=== PATIENT | female | born 2000 | race Caucasian/White ===

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

== ENCOUNTER → 2021-03-07 | Outpatient (CLI) | payer BC, OTHER ==
--- NOTE | 2021-03-07 11:40 | EKG ---
[address] [address] Test Date: 2021-03-07 Test Time: 10:36:12 Pat Name: CLAUDIO SAEZ Department: Room: Gender: F [employer] Starcher: : 2000 Requested By: GLORIA STYLES Order Number: [id number] Reading MD: Measurements Intervals [place] Rate: 75 P: 56 OR: 128 QRS: 67 QRSD: 88 T: 42 QT: 348 QTc: 391 Interpretive Statements SINUS RHYTHM NORMAL ECG RI6.02 No previous ECG available for comparison
== END ==
LOC: EKG 10:26
PROVIDERS: ATTEND Obstetrics & Gynecology
DX: R06.02 Shortness of breath (principal)
CPT/HCPCS: 93005

== ENCOUNTER 2021-10-23 19:35 | Emergency (ER) | payer BC, OTHER ==
[~2021-10-23] VITALS: Ht 165.1 cm; Wt 105.0 kg
--- NOTE | 2021-10-23 20:26 | PHYS DOC ---
Past History Past Medical History: Asthma, Hypertension (ANASTASIIA MCKEON APRN) Past Surgical History: No Surgical History (ANASTASIIA MCKEON APRN) Smoking: Non-smoker Alcohol Use: None Drug Use: None (ANASTASIIA MCKEON APRN) General Adult EDM: Chief Complaint: VAGINAL BLEEDING HPI: HPI: Patient is an 19-year-old female who presents to the emergency department today for vaginal bleeding and . Patient reports that she urinated and wiped and noticed spotting. She is reporting urinary frequency. Patient reports that she contacted her OB who is Dr. Mendez who told her to go to her closest ER. Patient is approximately 16 weeks . G2, P1. She has a history of eclampsia with her first . No complications with this thus far. Patient's last menstrual period was June 29. Patient reports that her blood pressure at home was 160 systolic. Her blood pressure is slightly elevated in the emergency department at 148/85. Patient denies any vision changes, abdominal pain, saturating pads, dysuria, vomiting, fevers, chest pain, shortness of breath. (ANASTASIIA MCKEON APRN) Review of Systems: Review of Systems: Constitutional: See HPI Eyes: See HPI Respiratory: See HPI Cardiovascular: See HPI GI: See HPI : See HPI (ANASTASIIA MCKEON APRN) Allergies: Allergies: Allergies Coded Allergies Type Severity Reaction Last Updated Verified No Known Drug Allergies 12/08/15 No (ANASTASIIA MCKEON APRN) Physical Exam: PE: Constitutional: Well developed, well nourished, no acute distress, non-toxic appearance. [] HENT: Normocephalic, atraumatic, bilateral external ears normal, oropharynx moist, no oral exudates, nose normal. [] Eyes: PERRL, EOMI, conjunctiva normal, no discharge. [] Neck: Normal range of motion, no stridor Cardiovascular:Heart rate regular rhythm, no murmur [] Lungs & Thorax: Bilateral breath sounds clear to auscultation [] Abdomen: Bowel sounds normal, soft, no tenderness, no masses, no pulsatile masses. [] Skin: Warm, dry, no erythema, no rash. [] Back: Normal range of motion Extremities: No tenderness, no cyanosis, no clubbing, ROM intact, no edema. [] Neurologic: Alert and oriented X 3, normal motor function, normal sensory function, no focal deficits noted. [] Psychologic: Affect normal, judgement normal, mood normal. [] (ANASTASIIA MCKEON APRN) Current Patient Data: Labs: Laboratory Tests Test 10/23/21 20:16 White Blood Count 11.3 x10^3/uL Red Blood Count 4.03 x10^6/uL Hemoglobin 12.1 g/dL Hematocrit 36.0 % Mean Corpuscular Volume 89 fL Mean Corpuscular Hemoglobin 30 pg Mean Corpuscular Hemoglobin Concent 34 g/dL Red Cell Distribution Width 14.7 % Platelet Count 253 x10^3/uL Neutrophils (%) (Auto) 61 % Lymphocytes (%) (Auto) 26 % Monocytes (%) (Auto) 8 % Eosinophils (%) (Auto) 4 % Basophils (%) (Auto) 1 % Neutrophils # (Auto) 6.8 x10^3uL Lymphocytes # (Auto) 3.0 x10^3/uL Monocytes # (Auto) 0.9 x10^3/uL Eosinophils # (Auto) 0.4 x10^3/uL Basophils # (Auto) 0.1 x10^3/uL Urine Collection Type Clean catch Urine Color Yellow Urine Clarity Clear Urine pH 7.5 Urine Specific [place] 1.020 Urine Protein Neg Urine Glucose (UA) Neg mg/dL Urine Ketones (Stick) Neg mg/dL Urine Blood Neg Urine Nitrite Neg Urine Bilirubin Neg Urine Urobilinogen Dipstick 0.2 mg/dL Urine Leukocyte Esterase Neg Urine RBC 0 /HPF Urine WBC 0 /HPF Urine Squamous Epithelial Cells Occ /LPF Urine Amorphous Sediment Present /HPF Urine Bacteria 0 /HPF Maternal Serum HCG Beta Subunit 40821 mIU/mL Sodium Level 138 mmol/L Potassium Level 3.9 mmol/L Chloride Level 103 mmol/L Carbon Dioxide Level 24 mmol/L Anion Gap 11 Blood Urea Nitrogen 8 mg/dL Creatinine 0.7 mg/dL Estimated GFR (Cockcroft-Gault) 107.8 BUN/Creatinine Ratio 11 Glucose Level 98 mg/dL Calcium Level 8.9 mg/dL Total Bilirubin 0.1 mg/dL Aspartate Amino Transf (AST/SGOT) 17 U/L Alanine Aminotransferase (ALT/SGPT) 28 U/L Alkaline Phosphatase 64 U/L Total Protein 6.8 g/dL Albumin 2.9 g/dL Albumin/Globulin Ratio 0.7 Vital Signs: Vital Signs Date Time Temp Pulse Resp B/P (MAP) Pulse Ox O2 Delivery O2 Flow Rate FiO2 10/23/21 20:14 98.5 82 16 148/85 (106) 99 Room Air (ANASTASIIA MCKEON APRN) EKG: EKG: [] (ANASTASIIA MCKEON APRN) Radiology/Procedures: Radiology/Procedures: [] (ANASTASIIA MCKEON APRN) Heart Score: C/O Chest Pain: No Risk Factors: Risk Factors: DM, Current or recent (<one month) smoker, HTN, HLP, family history of CAD, obesity. Risk Scores: Score 0 - 3: 2.5% MACE over next 6 weeks - Discharge Home Score 4 - 6: 20.3% MACE over next 6 weeks - Admit for Clinical Observation Score 7 - 10: 72.7% MACE over next 6 weeks - Early Invasive Strategies (ANASTASIIA MCKEON APRN) Course & Med Decision Making: Course & Med Decision Making Pertinent Labs and Imaging studies reviewed. (See chart for details) [] Patient presents to the emergency department for vaginal bleeding and at 16 weeks . History of eclampsia with first . Her blood pressure is elevated in the emergency department 148/85. Work-up in the ER consisted of blood work including quantitative hCG level and Rh type. Urinalysis was also performed. Ultrasound performed.Blood work unremarkable. UA negative for infection or protein. Pending US. As this patient supervising physician who will see patient care at this time due to shift change. [id number]. (ANASTASIIA MCKEON APRN) Course & Med Decision Making Patient care handed off to me at checkout pending ultrasound. Patient awake alert and oriented no acute distress. Vital signs with borderline systolic blood pressure at 146/79, patient on blood pressure medicines. No spotting while in the ED. Laboratory analysis not concerning. Ultrasound showing single live intrauterine gestation measuring approximately 16 weeks 5 days. Discussed all findings with patient. Advised to follow-up in the morning with KNIFE SETTER to discuss ED visit and set up a follow-up for soon as possible. Gave return precautions to the ED. Patient grateful, verbalized understanding and agreed w ith plan of discharge. (PHI SNYDER MD) Dragon Disclaimer: Dragon Disclaimer: This electronic medical record was generated, in whole or in part, using a voice recognition dictation system. (ANASTASIIA MCKEON APRN) Departure Departure: Impression: Primary Impression: Additional Impression: Vaginal bleeding Disposition: HOME / SELF CARE / HOMELESS Condition: STABLE Referrals: CRYSTAL PIZANO (PCP) Patient Instructions: ABCs of , Vaginal Bleeding During , First Trimester Additional Instructions: Thank you for coming into the emergency department night and allowing to take care of you. Please read the attached information carefully to go over things we discussed. You are given a copy of your ultrasound which showed a live single intrauterine at approximately 16 weeks 5 days. Please follow- up in the morning with your primary care physician or KNIFE SETTER whoever is handling your to update on ED visit and set up a follow-up as soon as you can. Please come back with new or concerning symptoms as discussed. ANASTASIIA MCKEON APRN Oct 23, 2021 20:26 PHI SNYDER MD Oct 23, 2021 22:29
[2021-10-23 20:42] LABS: BASO # 0.1 x10^3/uL (0.0-0.2); BASO % 1 % (0-3); EOS # 0.4 x10^3/uL (0.0-0.7); EOS % 4 % (0-3); HEMOGLOBIN 12.1 g/dL (12.0-15.5); LYMPH % 26 % (24-48); MEAN CORPUSCULAR HEMOGLOBIN 30 pg (25-35); MEAN CORPUSCULAR HGB CONC 34 g/dL (31-37); MEAN CORPUSCULAR VOLUME 89 fL (79-100); MONO # 0.9 x10^3/uL (0.0-1.1); MONO % 8 % (0-9); NEUT # 6.8 x10^3uL (1.8-7.7); NEUT % 61 % (31-73); PLATELET COUNT 253 x10^3/uL (140-400); RED BLOOD COUNT 4.03 x10^6/uL (3.50-5.40); RED CELL DISTRIBUTION WIDTH 14.7 % (11.5-14.5); WHITE BLOOD COUNT 11.3 x10^3/uL (4.0-11.0)
[2021-10-23 20:51] LABS: CALCIUM 8.9 mg/dL (8.5-10.1); CREATININE 0.7 mg/dL (0.6-1.0); GFR 107.8; POTASSIUM 3.9 mmol/L (3.5-5.1)
[2021-10-23 20:56] LABS: ALBUMIN 2.9 g/dL (3.4-5.0); ALBUMIN/GLOBULIN RATIO 0.7 (1.0-1.7); TOTAL BILIRUBIN 0.1 mg/dL (0.2-1.0); TOTAL PROTEIN 6.8 g/dL (6.4-8.2)
[2021-10-23 21:02] LABS: BACTERIA,URINE 0 /HPF (0-FEW); CLARITY,URINE CLEAR; COLOR,URINE YELLOW; GLUCOSE,URINE NEG (NEG); NITRITE,URINE NEG (NEG); RBC,URINE 0 /HPF (0-2); SQUAMOUS EPITHELIAL CELL,UR OCC /LPF; UROBILINOGEN,URINE 0.2 mg/dL (0.2 mg/dL); WBC,URINE 0 /HPF (0-4)
[2021-10-23 21:03] LABS: AMORPHOUS SEDIMENT,UR PRESENT /HPF
--- NOTE | 2021-10-23 22:22 | RAD ---
EXAM: US OB Limited CLINICAL HISTORY: Reason: vaginal bleeding in / Spl. Instructions: / History: . COMPARISON: None available. TECHNIQUE: Limited transabdominal ultrasound of the uterus was performed. FINDINGS: NUMBER: Single POSITION: Variable PLACENTA: Location: Posterior wall Placentation: Normal. Cord insertion: Normal. Cord type: 3 vessel cord. ANATOMY: HEART RATE: 162 bpm COMMENTS: None Current measurements are: BPD - 3.46 = 16w5d HC -12.98 = 16 weeks 4 days AC - 10.87 (cm) = 16w5d FL - 2.34 cm = 17 weeks 0 days MATERNAL ANATOMY UTERUS: No abnormalities seen. Placenta appears normal without appreciable hemorrhage. OVARIES/ADNEXAE: No masses seen. CUL-DE-SAC: No fluid. HISTORICAL DATES Last menstrual period: 06/16/2021 CALCULATED DATES EGA (LMP): 18 weeks 3 days BARRY (LMP): 03/23/2022 EGA (US): 16w5d BARRY (US): 04/04/2022 IMPRESSION: 1. Single live intrauterine gestation measuring 16 weeks 5 days by current ultrasound. 2. Dedicated survey is recommended that the nonemergent setting at 18-20 weeks gestation Electronically signed by: Efren Warren MD (10/23/2021 10:20 PM) [facility]
[2021-10-23 22:42] VITALS: BP 142/72
== END 2021-10-23 22:42 | disposition home or self-care (01) ==
LOC: ER 19:35
DX: O46.92 Antepartum hemorrhage, unspecified, second trimester (principal); O99.512 Diseases of the respiratory system complicating pregnancy, second trimester; J45.909 Unspecified asthma, uncomplicated; O16.2 Unspecified maternal hypertension, second trimester; Z3A.16 16 weeks gestation of pregnancy
CPT/HCPCS: 36415; 76815; 80053; 81001; 84702; 85025; 86901; 99284